=== PATIENT | male | born 1930 | race Caucasian/White ===

== ENCOUNTER 2016-10-20 13:47 | Inpatient (IN) | payer MEDICARE ==
[~2016-10-20] VITALS: Ht 170.2 cm; Wt 81.5 kg
[2016-10-21] MEDS ORDERED: CLOTCRE TOPICAL (08:46)
[2016-10-21] MEDS ORDERED: OMEGCAP PO (08:46)
[2016-10-21] MEDS ORDERED: MULTTAB23 PO (08:46)
[2016-10-21] MEDS ORDERED: NAPR500T PO (08:46)
[2016-10-21] MEDS ORDERED: OCUVTAB4 PO (08:46)
[2016-10-21] MEDS ORDERED: FURO40TA PO (08:46)
[2016-10-21] MEDS ORDERED: SIMV40TA PO (08:46)
[2016-10-21] MEDS ORDERED: POTA10CA PO (08:46)
[2016-11-01] MEDS ORDERED: ceFAZolin 2 GM PREMIX 50 ML IV SCH (09:00)
[2016-11-01] MEDS ORDERED: LACTATED RINGER'S 1000 ML IV PRN (09:00)
[2016-11-01] MEDS ORDERED: INSULIN HUMAN REGULAR 1,000 UNITS/10 ML VIAL SQ PRN (09:00)
[2016-11-01] MEDS: SODIUM CHLORIDE 0.9% IV SCH ×2 (09:00→13:10)
[2016-11-01] MEDS ORDERED: SODIUM CHLORID 0.9% 500 ML IV PRN (09:00)
[2016-11-01] MEDS ORDERED: CHLORHEXIDINE GLUCONATE 2 % 1 PACK (2 CLOTHS) TOPICAL PRN (09:00)
[2016-11-01] MEDS: CHLORHEXIDINE GLUCONATE 4% SOLN 120 ML BTL TOPICAL SCH (09:00)
[2016-11-01] MEDS ORDERED: POVIDONE IODINE 5% (ANTISEPSIS KIT) 4 APPLICATIONS EACH NARE PRN (09:00)
[2016-11-01] MEDS ORDERED: VANCOMYCIN 1000 MG/NS 250 ML (for <70 kg) IV SCH ×2 (09:00)
[2016-11-01] MEDS ORDERED: METOPROLOL TARTRATE 25 MG TAB PO PRN (09:00)
[2016-11-01] MEDS: TRANEXAMIC ACID IV SCH ×2 (09:00→13:10)
[2016-11-01] MEDS: EXPAREL PERI-ARTICULAR INJECTION (TOTAL VOL. 60 ML) P-ARTICULR SCH ×4 (09:00→13:44)
[2016-11-01] MEDS ORDERED: LACTATED RINGER'S 1000 ML INJ 1,000 ML IV ONE (09:17)
[2016-11-01] MEDS ORDERED: PHENYLEPH/NS 1000 MCG/10 ML SYR IV ONE (09:17)
[2016-11-01] MEDS ORDERED: ONDANSETRON HCL 4 MG/2 ML VIAL IV PUSH ONE (09:17)
[2016-11-01] MEDS ORDERED: NEOSTIGMINE 3 MG/3 ML SYR IV ONE (09:17)
[2016-11-01] MEDS ORDERED: ePHEDrine/NS 25 MG/5 ML SYR IV ONE (09:17)
[2016-11-01] MEDS ORDERED: PROPOFOL 200 MG/20 ML AMP IV ONE (09:17)
[2016-11-01 09:18] VITALS: BP 140/75; PULSE 68; RESP 18; TEMP 97.7; O2SAT 96
--- NOTE | 2016-11-01 11:30 | EKG ---
Date Performed: 11/01/2016 Time Performed: 09:26:32 PTAGE: 86 years EKG: Sinus rhythm WITH FIRST DEGREE AV BLOCK ABNORMAL ECG NO PREVIOUS TRACING DOCTOR: Santana Badillo Interpretating Date/Time 11/01/2016 11:29:26
[2016-11-01] MEDS ORDERED: GENTAMICIN SULFATE 80 MG/2 ML VIAL ONE ×2 (12:22)
[2016-11-01] MEDS ORDERED: MIDAZOLAM HCL 2 MG/2 ML VIAL ONE (12:39)
[2016-11-01] MEDS ORDERED: FAMOTIDINE 20 MG/2 ML VIAL ONE (12:40)
[2016-11-01] MEDS ORDERED: ACETAMINOPHEN/HYDROcodone 325 MG/10 MG TAB PO PRN (14:45)
[2016-11-01] MEDS ORDERED: BETAMETHASONE/CLOTRIMAZOLE CREAM 15 GM TOPICAL PRN (14:45)
[2016-11-01] MEDS ORDERED: SODIUM CHLORIDE 0.9% FLUSH 5 ML FLUSH IVF PRN (14:45)
[2016-11-01] MEDS ORDERED: ONDANSETRON HCL 4 MG/2 ML VIAL IVP PRN (14:45)
[2016-11-01] MEDS ORDERED: ACETAMINOPHEN/HYDROcodone 325 MG/7.5 MG TAB PO PRN (14:45)
[2016-11-01] MEDS ORDERED: MORPHINE SULFATE 4 MG/ML INJ IV PUSH PRN (14:45)
[2016-11-01] MEDS ORDERED: Post-op Orders (for Pharmacy) MISC XX ONE (14:45)
[2016-11-01] MEDS ORDERED: NALOXONE HCL 0.4 MG/ML AMP IV PRN (14:45)
--- NOTE | 2016-11-01 14:47 | PD.OP ---
cc: Angel Ward MD Operative Report Date of Surgery: Nov 01, 2016 Preoperative Diagnosis: Severe left hip osteoarthritis Postoperative Diagnosis: Procedure: Left total hip arthroplasty by anterior approach Anesthesia: Gen. Surgeon: Angel Ward Cable Technician(s): Dean Williamson PA-C The surgical procedure was assisted by my physician fitness assistant. My P.A. presence was necessary throughout this case for the manipulation and positioning of the surgical extremity. My P.A. was assisting me throughout the duration of this procedure. The skill set of a physician fitness assistant was medically necessary to complete this procedure. During the surgical case the surgical elastic knitter hand frame was working at the back table and the physician fitness assistant was directly assisting me. Operation and Findings: PLAN OF ACTIVITY Weight bear as tolerated. DRAINS: 7-mm ARTIE drain. IMPLANTS USED DePuy Corail size [10] collared stem with a size [22] Antelope Gription cup and a [36+5 metal] head. DETAILS OF PROCEDURE: This patient has a long history of hip pain. Patient was found to have severe osteoarthritis. The patient had radiographic evidence of joint space narrowing with [id number] arthritis and osteophytes around the acetabulum as well as the femoral head. There was also some cystic changes. The patient failed conservative treatment with pain medications, anti-inflammatories, physical therapy, assistive devices including a cane, as well as therapeutic injection of the hip. Patient's hip arthritis was limiting his ability to ambulate and perform activities of daily living. The patient wished to proceed with surgery and informed consent was obtained. Operative site was marked. I discussed both posterior approach and anterior approach with the patient and decision was made for anterior approach. Patient was brought to OR and placed on OR table. IV sedation and general anesthesia was administered by anesthesiologist. Patient positioned on a Ksenia table and was given IV antibiotics. Time-out procedure was performed. The hip and thigh were prepped with alcohol followed by Hibiclens. The thigh was draped in the usual sterile fashion. Clean Air Suite was used for this procedure. The procedure began with a 5-inch incision over the anterolateral thigh. Subcutaneous tissue was dissected with Bovie. The fascia over the tensa fasciae latae was incised. Care was taken to avoid injury to the lateral femoral cutaneous nerve. The tensor muscle was retracted laterally. Sartorius was retracted medially. Retractors were now placed. The reflected head of the rectus is now elevated. A capsulotomy was performed over the anterior head capsule. Sutures were placed to help retract the capsule. At this point the femoral head and neck were identified. With soft tissue protected, oscillating saw was used to make a cut through the femoral neck, the femoral head was now removed. At this point attention was turned to preparation of the acetabulum. The labrum was excised. The acetabulum was sequentially reamed up to size [52]. A Antelope cup was now placed. Fluoroscopy was used to aid in identification of appropriate version. Cup was fully impacted and found to have excellent fit. Hole eliminator was now placed. The liner was now impacted into the cup. At this point the hip was externally rotated. A hook was placed around the proximal femur. The capsule was released off the lateral and medial femur. The hip was now extended and adducted. Retractors were placed around the proximal femur to allow for exposure. A box osteotome was used to remove the lateral cortex of the femoral neck. A broach was used to help lateralize the prosthesis. Canal finder was used to create a path down the canal. Next, the canal was sequentially broached up to size [10]. This was found to be an excellent fit. Calcar planer was placed. A standard head was placed, and the hip was reduced. The hip was found to have excellent stability with good range of motion. The leg lengths were measured under fluoroscopy and found to be equal compared to preoperatively. Trial broach was removed. The Corail stem was opened. Stem was fully impacted into the proximal femur in appropriate version. The femoral head was placed. The hip was again reduced. Fluoroscopy confirmed excellent alignment of prosthesis. The wound was thoroughly irrigated and capsule was closed with #1 Vicryl. The fascia over the tensor fasciae muscle was closed with #1 Vicryl, subcutaneous tissue was closed with 3-0 Vicryl and the skin was closed with huy and Dermabond skin closure. The capsule layers were injected with a mixture of saline and bupivicaine. Dressings were applied. The patient was transferred to Recovery Room in stable condition. Angel Ward MD Nov 01, 2016 14:47
--- NOTE | 2016-11-01 14:53 | RADRPT ---
EXAM DATE/TIME: 11/01/2016 14:18 [facility] COMPARISON: No previous studies available for comparison. INDICATIONS : Left total hip replacement. MEDICAL HISTORY : None. SURGICAL HISTORY : None. ENCOUNTER: Initial ACUITY: 1 day PAIN SCORE: Non-responsive. LOCATION: Left hip. FINDINGS: 2 spot intraoperative fluoroscopic views of the left hip are obtained and demonstrate left femoral an d acetabular components which appear well seated. CONCLUSION: Postoperative changes left hip arthroplasty. Eliud Garcia MD on November 01, 2016 at 14:51 Board Certified Radiologist. This report was verified electronically.
[2016-11-01] MEDS ORDERED: DO NOT ADM ANY ANTICOAGULANT DRUGS PRN (15:06)
[2016-11-01] MEDS ORDERED: *morphine SULFATE 8 MG/ML PERIprocedure ONLY ONE ×2 (15:16→16:07)
[2016-11-01] MEDS: LACTATED RINGER'S 1000 ML INJ 1,000 ML IV SCH ×2 (15:30→22:40)
[2016-11-01] MEDS ORDERED: TRANEXAMIC ACID INJ 1,000 MG in SODIUM CHLORIDE 0.9% INJ 100 ML IV ONE (16:00)
--- NOTE | 2016-11-01 16:18 | RADRPT ---
EXAM DATE/TIME: 11/01/2016 15:06 [facility] COMPARISON: HIP LEFT (AP&LAT 2/3VWS) WO AP PELVIS, November 01, 2016, 14:18. INDICATIONS : Post op left hip. MEDICAL HISTORY : None. SURGICAL HISTORY : None. ENCOUNTER: Initial ACUITY: 1 day PAIN SCORE: Non-responsive. LOCATION: Left hip. FINDINGS: Normal bone density. Penile implant hardware identified. A left total hip arthroplasty is noted with overlying skin huy, surgical drain and subcutaneous emphysema. No evidence of dislocation. CONCLUSION: Left hip arthroplasty. Eliud Garcia MD on November 01, 2016 at 16:15 Board Certified Radiologist. This report was verified electronically.
[2016-11-01] MEDS: KETOROLAC TROMETHAMINE 30 MG/ML (IVP) VIAL IV PUSH SCH (16:40)
[2016-11-01] MEDS: ceFAZolin 2 GM PREMIX 50 ML IV SCH ×2 (17:38→22:39)
[2016-11-01 17:51] VITALS: BP 142/75; PULSE 89; RESP 16; TEMP 95.5; O2SAT 96
[2016-11-01] MEDS: SODIUM CHLORIDE 0.9% FLUSH 5 ML FLUSH IVF SCH (20:09)
[2016-11-01] MEDS: PRAVASTATIN SOD 80 MG TAB PO SCH (20:09)
[2016-11-01 20:12] VITALS: BP 122/63; PULSE 107; RESP 18; TEMP 96.2; O2SAT 97
[2016-11-01] MEDS ORDERED: NON-FORMULARY DRUG (Simvastatin 40 MG) PO SCH (21:00)
[2016-11-01] MEDS: VANCOMYCIN INJ 1,000 MG in SODIUM CHLOR 0.9% 250 ML INJ 250 ML IV SCH (21:32)
[2016-11-02 00:01] VITALS: BP 102/59; PULSE 88; RESP 17; TEMP 96.9; O2SAT 93
[2016-11-02] MEDS: KETOROLAC TROMETHAMINE 30 MG/ML (IVP) VIAL IV PUSH SCH ×2 (03:58→17:08)
[2016-11-02 04:21] VITALS: BP 103/56; PULSE 80; RESP 18; TEMP 96.1; O2SAT 96
[2016-11-02] MEDS: ceFAZolin 2 GM PREMIX 50 ML IV SCH (05:47)
--- NOTE | 2016-11-02 07:08 | PD.ORT.PN ---
Subjective Subjective Remarks POD 1 s/p Left SUZANNE doing well. pain controlled. no complaints. out of bed to chair yesterday Objective Vitals Vital Signs Date Time Temp Pulse Resp B/P Pulse Ox O2 Delivery O2 Flow Rate FiO2 11/02/16 04:21 96.1 80 18 103/56 96 11/02/16 00:01 96.9 88 17 102/59 93 11/01/16 20:12 96.2 107 18 122/63 97 11/01/16 19:56 18 11/01/16 17:51 95.5 89 16 142/75 96 11/01/16 15:45 70 12 138/74 94 Nasal Cannula 3 11/01/16 15:30 70 12 123/69 92 Nasal Cannula 3 11/01/16 15:15 68 12 134/71 95 Nasal Cannula 2.5 11/01/16 15:05 97.4 72 14 140/81 92 Nasal Cannula 2.5 11/01/16 09:18 97.7 68 18 140/75 96 I/O 11/01/16 11/01/16 11/01/16 11/02/16 11/02/16 11/02/16 07:00 15:00 23:00 07:00 15:00 23:00 Intake Total 2285 ml 957 ml Output Total 1095 ml 360 ml Balance 1190 ml 597 ml Intake Oral 360 ml 240 ml IV Total 125 ml 717 ml Other 1800 ml Output Urine Total 675 ml 300 ml Drainage Total 120 ml 60 ml Estimated Blood Loss 300 ml # Bowel Movements 0 0 Imaging Last 24 hours Impressions Hip and Pelvis X-Ray 11/01/16 1441 Signed Impressions: Service Date/Time: Tuesday, November 01, 2016 15:06 - CONCLUSION: Left hip arthroplasty. Eliud Garcia MD Objective Remarks LLE: dressings clean and dry. intact. NVI. + drain. Assessment & Plan Assessment and Plan 1) Left SUZANNE (anterior) - POD 1 -WBAT -dressing changes POD 2 -DC drain POD 2 -CM for HHC -work with therapy -if doing well, will plan for home with HHC -f/u with Nimo or PA in 2 weeks Dean Williamson Nov 02, 2016 07:08
[2016-11-02] MEDS ORDERED: XARE10TA PO (07:10)
[2016-11-02] MEDS ORDERED: WALKER/ADULT/FO1 MIS (07:10)
[2016-11-02] MEDS ORDERED: HYDR-3366 PO (07:10)
--- NOTE | 2016-11-02 07:10 | HHI.FF ---
Face to Face Verification Diagnosis: (1) S/P total hip arthroplasty Physical Therapy Gait training Hip: Total hip, Protocol: Left Left LE Weight Bearing: WB as tolerated Nursing Dressing Changes: Daily dressing change, Coverderm/Primapore (begin xeroform POD 10) I have seen patient Fernandez Huang on 11/02/16. My clinical findings support the need for the requested home health care services because: Ltd mobility - disease progression I certify that my clinical findings support that this patient is homebound because: Post-op weakness Dean Williamson Nov 02, 2016 07:10
[2016-11-02 08:00] VITALS: BP 116/58; PULSE 80; RESP 16; TEMP 96.4; O2SAT 92
[2016-11-02 08:13] LABS: REVIEW FLAG FINAL
[2016-11-02] MEDS: CHLORHEXIDINE GLUCONATE 4% SOLN 120 ML BTL TOPICAL SCH (08:29)
[2016-11-02] MEDS: SODIUM CHLORIDE 0.9% FLUSH 5 ML FLUSH IVF SCH ×2 (08:30→21:00)
[2016-11-02] MEDS: POTASSIUM CHLORIDE 10 MEQ CAP PO SCH (08:33)
[2016-11-02] MEDS: FUROSEMIDE 40 MG TAB PO SCH (08:33)
[2016-11-02] MEDS ORDERED: FISH OIL PO SCH (09:00)
[2016-11-02] MEDS ORDERED: CHOLECALCIFEROL PO SCH (09:00)
[2016-11-02] MEDS: VANCOMYCIN INJ 1,000 MG in SODIUM CHLOR 0.9% 250 ML INJ 250 ML IV SCH (10:29)
[2016-11-02 12:00] VITALS: BP 113/57; PULSE 68; RESP 16; TEMP 96.1; O2SAT 93
[2016-11-02] MEDS: ENOXAPARIN SODIUM 30 MG/0.3 ML SYRINGE SQ SCH (13:53)
[2016-11-02 16:00] VITALS: BP 134/63; PULSE 86; RESP 16; TEMP 98.1; O2SAT 92
--- NOTE | 2016-11-02 16:54 | OTSOAPIP ---
2458/ 0051 PATIENT UNAVAILABLE DUE TO NURSING CARE RELATED TO NAUSEA. Therapist: Rochelle Patel OTR/L Signature on file
[2016-11-02] MEDS: LACTATED RINGER'S 1000 ML INJ 1,000 ML IV SCH (17:08)
[2016-11-02 20:18] VITALS: BP 119/56; PULSE 89; RESP 19; TEMP 98.3; O2SAT 95
[2016-11-02] MEDS: DOCUSATE SODIUM 100 MG CAP PO SCH (22:03)
[2016-11-02] MEDS: PRAVASTATIN SOD 80 MG TAB PO SCH (22:03)
[2016-11-03 00:23] VITALS: BP 103/62; PULSE 85; RESP 18; TEMP 98.6; O2SAT 92
[2016-11-03 04:15] VITALS: BP 137/65; PULSE 86; RESP 18; TEMP 98.4; O2SAT 92
[2016-11-03] MEDS: LACTATED RINGER'S 1000 ML INJ 1,000 ML IV SCH (05:34)
--- NOTE | 2016-11-03 06:59 | PD.ORT.PN ---
Subjective Subjective Remarks Doing well with pain controlled Objective Vitals Vital Signs Date Time Temp Pulse Resp B/P Pulse Ox O2 Delivery O2 Flow Rate FiO2 11/03/16 04:15 98.4 86 18 137/65 92 11/03/16 00:23 98.6 85 18 103/62 92 11/02/16 20:18 98.3 89 19 119/56 95 11/02/16 19:08 Room Air 11/02/16 18:37 21 11/02/16 18:01 16 11/02/16 16:00 98.1 86 16 134/63 92 11/02/16 12:00 96.1 68 16 113/57 93 11/02/16 08:00 96.4 80 16 116/58 92 I/O 11/02/16 11/02/16 11/02/16 11/03/16 11/03/16 11/03/16 07:00 15:00 23:00 07:00 15:00 23:00 Intake Total 957 ml 1102 ml 553 ml 785 ml Output Total 360 ml 500 ml 650 ml 400 ml Balance 597 ml 602 ml -97 ml 385 ml Intake Oral 240 ml 600 ml 360 ml 480 ml IV Total 717 ml 502 ml 193 ml 305 ml Output Urine Total 300 ml 500 ml 650 ml 400 ml Drainage Total 60 ml # Voids 3 # Bowel Movements 0 1 0 0 Result Diagram: 11/02/16 0720 Imaging Last 24 hours Impressions Hip and Pelvis X-Ray 11/01/16 1441 Signed Impressions: Service Date/Time: Tuesday, November 01, 2016 15:06 - CONCLUSION: Left hip arthroplasty. Eliud Garcia MD Objective Remarks LLE: dressings clean and dry. intact. NVI. Assessment & Plan Assessment and Plan 1) Left SUZANNE (anterior) - POD 2 -WBAT -dressing changes -CM for HHC -work with therapy DC to home today if cleared by physical therapy -f/u with Nimo or CECY in 2 weeks Rocco Laura Jr. Nov 03, 2016 06:59
--- NOTE | 2016-11-03 07:25 | HHI.DS ---
Discharge Summary Admission Date Nov 01, 2016 at 08:20 Discharge Date: Nov 03, 2016 Admitting Diagnosis Left hip osteoarthritis Diagnosis: (1) S/P total hip arthroplasty Diagnosis: Principal Procedures Anterior left total hip arthroplasty CBC/BMP: 11/02/16 0720 Significant Findings Laboratory Tests Test 11/02/16 07:20 Hemoglobin 12.5 GM/DL (13.0-17.0) Hematocrit 36.0 % (39.0-51.0) PE at Discharge LLE: dressings clean and dry. intact. NVI. Hospital Course Patient admitted on outpatient basis for elective left total hip arthroplasty. Patient tolerated the procedure well was admitted 6 north. Patient was out of bed on postop day 1 with therapy. His pain was well-controlled using hemodynamically stable. On postoperative day 2 he was doing well and ambulating with minimal assistance. He is fit for discharge home with home health care. He'll remain weightbearing as tolerated. He will undergo daily dressing changes with home health care. He'll follow up in office Dr. Foramn or his PA in 2 weeks Pt Condition on Discharge: Good Discharge Disposition: Disch w/ Home Health Serv Discharge Instructions Diet Instructions: As Tolerated, No Restrictions Activities You Can Perform: Weight Bearing as Nik Follow up Referrals: Orthopedics - 11/16/16 @ [facility] with Angel Forman MD New Medications: Hydrocodone-Acetaminophen ([place]) 10-325 Mg Tab 1 TAB PO Q4H PRN PAIN #60 Ref 0 TAB Rivaroxaban (Xarelto) 10 Mg Tab 10 MG PO DAILY Blood Clot Prevention #14 Ref 0 TAB Walker/Adult/Folding (Walker/Adult/Folding) 1 Mis Mis 1 EA .ROUTE DIRECTED #1 Ref 0 EA Continued Medications: Clotrimazole-Betamethasone Topical (Clotrimazole-Betamethasone Topical) 1-0.05% Cream 1 APPLIC TOPICAL DAILY PRN fungal infection #45 Ref 0 GM Fish Oil-Cholecalciferol ([place]-3 Fish Oil/Vitamin) 1,000-1,000 Mg Cap 3 CAP PO DAILY Nutritional Supplement Ref 0 CAP Furosemide (Furosemide) 40 Mg Tab 40 MG PO DAILY #30 Ref 0 TAB Multiple Vitamins W/ Minerals (Preservision Areds) 1 Tab 1 TAB PO BID Nutritional Supplement Ref 0 TAB Multiple Vitamins W/ Minerals (Multi For Him 50+) 1 Tab Tab 1 TAB PO DAILY Nutritional Supplement Potassium Chloride ER (Potassium Chloride ER) 10 Meq Cap 10 MEQ PO DAILY Electrolyte Replacement #30 Ref 0 CAP Simvastatin (Simvastatin) 40 Mg Tab 40 MG PO HS Cholesterol Management #30 Ref 0 TAB Discontinued Medications: Naproxen (Naproxen) 500 Mg Tab 500 MG PO DAILY Pain Management #60 Ref 0 TAB Dean Williamson Nov 03, 2016 07:25
[2016-11-03] MEDS: DOCUSATE SODIUM 100 MG CAP PO SCH (07:51)
[2016-11-03] MEDS: FUROSEMIDE 40 MG TAB PO SCH (07:52)
[2016-11-03] MEDS: POTASSIUM CHLORIDE 10 MEQ CAP PO SCH (07:52)
[2016-11-03] MEDS: SODIUM CHLORIDE 0.9% FLUSH 5 ML FLUSH IVF SCH (07:53)
[2016-11-03 08:00] VITALS: BP 147/75; PULSE 95; RESP 18; TEMP 97.3; O2SAT 92
[2016-11-03] MEDS: CHLORHEXIDINE GLUCONATE 4% SOLN 120 ML BTL TOPICAL SCH (09:00)
[2016-11-03 11:57] VITALS: BP 139/70; PULSE 108; RESP 18; TEMP 96.9; O2SAT 95
[2016-11-03] MEDS: ENOXAPARIN SODIUM 30 MG/0.3 ML SYRINGE SQ SCH (13:09)
== END 2016-11-03 15:35 | disposition home health service (06) | DRG 470 ==
LOC: HSDI 11-01 08:20 → N06A 11-01 17:06
PROVIDERS: ADMIT Orthopaedic Surgery Orthopaedic Trauma; ATTEND Orthopaedic Surgery Orthopaedic Trauma
PROC: 0SRB01A Replacement of Left Hip Joint with Metal Synthetic Substitute, Uncemented, Open Approach (ICD-10-PCS; principal; 2016-11-01 12:45)
DX: M16.12 Unilateral primary osteoarthritis, left hip (principal)
CPT/HCPCS: 73501; 73502; 76000; 85014; 85018; 86850; 86900; 86901; 93005; C1776; C9290; J0690; J1580; J1650; J1885; J2250; J2270; J2370; J2405; J2710; J3010; J3370; J7050; J7120

== ENCOUNTER → 2016-10-21 | Outpatient (CLI) | payer MEDICARE ==
[~2016-10-21] MED LIST: CLOTCRE TOPICAL; FISH1000 PO; FURO40TA PO; HYDR-3366 PO; MULTTAB23 PO; NAPR500T PO; OCUVTAB4 PO; OMEGCAP PO; POTA10CA PO; PRESERVISION; SAWPOW; SIMV40TA PO; WALKER/ADULT/FO1 MIS; XARE10TA PO; ZOCO40TA PO
== END ==
LOC: CPRE 08:14
PROVIDERS: ATTEND Orthopaedic Surgery Orthopaedic Trauma
DX: M79.609 Pain in unspecified limb (principal)

== ENCOUNTER 2017-03-28 05:33 | Observation (INO) | payer MEDICARE ==
[~2017-03-28] VITALS: Ht 171.4 cm; Wt 81.6 kg
[~2017-03-28 05:33] MED LIST changes: -FISH1000 PO; -NAPR500T PO; -PRESERVISION; -SAWPOW; -ZOCO40TA PO
[2017-03-28] MEDS ORDERED: METOPROLOL TARTRATE 25 MG TAB PO PRN (06:00)
[2017-03-28] MEDS ORDERED: CHLORHEXIDINE GLUCONATE 2 % 1 PACK (2 CLOTHS) TOPICAL PRN (06:00)
[2017-03-28] MEDS ORDERED: SODIUM CHLORID 0.9% 500 ML IV PRN (06:00)
[2017-03-28] MEDS ORDERED: POVIDONE IODINE 5% (ANTISEPSIS KIT) 4 APPLICATIONS EACH NARE PRN (06:00)
[2017-03-28] MEDS ORDERED: CHLORHEXIDINE GLUCONATE 4% SOLN 120 ML BTL TOPICAL SCH (06:00)
[2017-03-28] MEDS ORDERED: INSULIN HUMAN REGULAR 1,000 UNITS/10 ML VIAL SQ PRN (06:00)
[2017-03-28] MEDS ORDERED: LACTATED RINGER'S 1000 ML IV PRN (06:00)
[2017-03-28] MEDS ORDERED: BETAMETHASONE SOD PHOS/ACETATE SUSP 30 MG/5 ML VIAL ONE (06:10)
[2017-03-28] MEDS ORDERED: HYDR25TA5 PO (06:20)
[2017-03-28] MEDS ORDERED: NAPR250T PO (06:20)
[2017-03-28] MEDS ORDERED: BUPIVACAINE/EPINEPHRINE 0.25% 50 ML VIAL ONE (06:38)
--- NOTE | 2017-03-28 07:01 | MH ---
cc: REJI TORRES DATE OF ADMISSION 03/28/2017 ADMITTING DIAGNOSIS: Lumbar spinal stenosis. HISTORY This patient is an 86-year-old male with significant bilateral hip and leg pain. Investigative studies shows evidence of high-grade stenosis L2-3 and L3-4. The patient had long-term conservative care that goes back several years including epidural steroid injections, altered activities, physical therapy and medication. The patient is developing weakness into his legs. He now presents for surgical treatment. PAST MEDICAL HISTORY, SOCIAL HISTORY AND FAMILY HISTORY See attached notes. PHYSICAL EXAMINATION GENERAL: Average build male in moderate distress with his back and legs. HEENT: Normocephalic, atraumatic. Pupils equal, round, reactive to light and accommodation. Extraocular motions intact. NECK: Supple. CHEST: Chest is clear. HEART: Regular rate and rhythm. ABDOMEN: Soft, nontender, normoactive bowel sounds. MUSCULOSKELETAL: Thoracolumbar spine restricted motion, pain with range of motion. [id number]-rrisj is positive bilaterally. Motor examination shows mild weakness bilateral quadriceps and anterior tibialis. IMAGING STUDIES Investigative studies shows evidence of severe spinal stenosis L2-3 and L3-4. IMPRESSION 1. Lumbar spinal stenosis of L2-3 and L3-4. 2. Bilateral lumbosacral radiculopathy. PLAN Bilateral lumbar laminectomy from the left L2-3 and L3-4, bilateral lateral recess decompression, use of dilation port and microscope. CONSENT The risks of surgery including infection, bleeding, loss of motion, continued pain, need for further surgery, neurologic, vascular injury. The patient understands these risks and wished to press on with surgery as outlined above. Reji Torres MD MCG/FANTA /10:30 PM /6:55 AM
[2017-03-28] MEDS ORDERED: MIDAZOLAM HCL 2 MG/2 ML VIAL ONE (07:17)
[2017-03-28] MEDS ORDERED: ARTIFICIAL TEARS OPTH OINT 3.5 APPLIC/3.5 GM TUBO ONE (07:17)
[2017-03-28] MEDS ORDERED: ACETAMINOPHEN 1000 MG/100 ML 0 ML IV ONE (07:17)
[2017-03-28] MEDS ORDERED: DEXAMETHASONE SOD PHOS 4 MG/ML VIAL ONE (07:18)
[2017-03-28] MEDS ORDERED: SUGAMMADEX SODIUM 200 MG/2 ML VIAL IV PUSH ONE ×2 (07:38)
[2017-03-28] MEDS ORDERED: DO NOT ADM ANY ANTICOAGULANT DRUGS PRN (07:57)
[2017-03-28] MEDS: LACTATED RINGER'S 1000 ML INJ 1,000 ML IV SCH ×2 (08:00→21:39)
[2017-03-28] MEDS ORDERED: ACETAMINOPHEN/HYDROcodone 325 MG/5 MG TAB PO PRN (08:00)
[2017-03-28] MEDS ORDERED: ALUMINUM/MAGNESIUM/SIMETH 30 ML CUP PO PRN (08:00)
--- NOTE | 2017-03-28 08:04 | PD.OP ---
cc: Tiago Bautista MD Operative Report Date of Surgery: Mar 28, 2017 Preoperative Diagnosis: Lumbar spinal stenosis L2-3 and L3 4. Lumbar radiculopathy Postoperative Diagnosis: Same. Rapid response atrial fibrillation, acute onset Procedure: Procedure canceled Anesthesia: Gen. Surgeon: Tiago Bautista Insulator Technician(s): NAHUN Desai Operation and Findings: The patient was brought to the operating room and anesthetized in the supine position. The anesthesiologist reported to me that he had a heart rate of 190 with atrial fibrillation. It was recommended the case be canceled due to cardiac concerns. Apparently he has no history of atrial fibrillation or cardiac dysrhythmia. The patient was awakened and taken to the recovery room in satisfactory condition Tiago Bautista MD Mar 28, 2017 08:04
[2017-03-28] MEDS: ceFAZolin 2 GM PREMIX 50 ML IV SCH (08:11)
[2017-03-28] MEDS ORDERED: SODIUM CHLORIDE 0.9% FLUSH 10 ML FLUSH IV FLUSH PRN (08:30)
[2017-03-28] MEDS: SODIUM CHLORIDE 0.9% FLUSH 10 ML FLUSH IV FLUSH SCH ×2 (09:00→21:39)
[2017-03-28 10:13] VITALS: BP 130/72; PULSE 67; RESP 18; TEMP 95.6; O2SAT 93
--- NOTE | 2017-03-28 11:16 | PD.CONS ---
HPI Service [facility] Hospitalists Consult Requested By Primary Care Physician Nichelle Sarmiento M.D. Diagnoses: History of Present Illness Pt is 86 yo admitted electively today for laminectomy of L2-4 for severe spinal stenosis. Pt says he has been in excellent condition but has been slowed down by low back pain radiating into left lower ext. Pt taken to OR and during induction was said to have developed afib/rvr HR 190s. Surgery postponed and cardiology consulted. Currently pt resting comfortably in room. Back in sinus rhythm. Denies any hx cad, afib, chf, lung diseases,rigoberto, thyroid dz. Says he was recently placed on hctz for leg edema. Review of Systems Other lbp/left radiculopathy. Past Family Social History Past Medical History leg edema hyperlipidema appe turp umb. hernia repair penile implant left pedrito Reported Medications Hydrochlorothiazide 25 Mg Tab 25 Mg PO DAILY Naproxen 250 Mg Tab 250 Mg PO BID Simvastatin 40 Mg Tab 40 Mg PO HS Multi For Him 50+ (Multiple Vitamins W/ Minerals) 1 Tab Tab 1 Tab PO DAILY Preservision Areds (Multiple Vitamins W/ Minerals) 1 Tab 1 Tab PO BID [place]-3 Fish Oil/Vitamin (Fish Oil-Cholecalciferol) 1,000-1,000 Mg Cap 3 Cap PO DAILY Clotrimazole-Betamethasone Topical (Betamethasone/Clotrimazole) 1-0.05% Cream 1 Applic TOPICAL DAILY PRN Allergies: Coded Allergies: grass pollen (Unverified Allergy, Mild, Cough, 03/28/17) throat irritation Family History nc Social History no etoh/tob Physical Exam Vital Signs heart reg. s4 lung cta abd s/nt ext no edema right carotid bruit. Vital Signs Date Time Temp Pulse Resp B/P (MAP) Pulse Ox O2 Delivery O2 Flow Rate FiO2 03/28/17 10:13 95.6 67 18 130/72 (91) 93 03/28/17 08:44 98.0 67 20 145/71 (95) 96 Nasal Cannula 3 03/28/17 08:30 65 24 145/71 (95) 95 Nasal Cannula 3 03/28/17 08:15 68 20 132/67 (88) 94 Nasal Cannula 3 03/28/17 07:58 97.7 67 17 128/68 (88) 97 Nasal Cannula 3 Assessment and Plan Problem List: (1) Afib ICD Codes: I48.91 - Unspecified atrial fibrillation Status: Acute Plan: Pt reportedly developed afib/rvr during induction anesthesia today for spinal stenosis. I have found no strips/ekg's that have this rhythm for review. currenty in NSR discussed with cardiology. will get echo to eval LVF potline monitor. check electrolytes. pt recently placed on hctz check tsh carotid u/s to eval bruit possible bb per cardiology. (2) Carotid bruit ICD Codes: R09.89 - Other specified symptoms and signs involving the circulatory and respiratory systems Status: Acute (3) Spinal stenosis ICD Codes: M48.00 - Spinal stenosis, site unspecified Status: Acute Harinder Mcclellan MD Mar 28, 2017 11:16
[2017-03-28] MEDS ORDERED: PHENYLEPH/NS 1000 MCG/10 ML SYR IV ONE (12:00)
[2017-03-28] MEDS ORDERED: PROPOFOL 200 MG/20 ML AMP IV ONE (12:00)
[2017-03-28 12:09] VITALS: O2SAT 93
[2017-03-28 12:31] VITALS: BP 113/66; PULSE 84; RESP 18; TEMP 96.6; O2SAT 94
--- NOTE | 2017-03-28 13:56 | EKG ---
Date Performed: 03/28/2017 Time Performed: 08:18:35 PTAGE: 86 years EKG: Sinus rhythm WITH FIRST DEGREE HEART BLOCK, OCCASIONAL VENTRICULAR PREMATURE COMPLEXES MODERATE INTRAVENTRICULAR CONDUCTION DELAY Compared to previous tracing ventricular ectopy is new BORDERLINE ECG PREVIOUS TRACING : 11/01/2016 09.26 DOCTOR: Darius Gilliam Interpretating Date/Time 03/28/2017 13:53:40
[2017-03-28] MEDS: HYDROCHLOROTHIAZIDE 25 MG TAB PO SCH (14:44)
[2017-03-28 16:00] VITALS: BP 124/70; PULSE 84; RESP 18; TEMP 96.2; O2SAT 95
[2017-03-28 17:09] LABS: BICARBONATE 28.4 MEQ/L (21.0-32.0); MAGNESIUM 2.2 MG/DL (1.5-2.5); POTASSIUM 3.7 MEQ/L (3.5-5.1)
[2017-03-28 19:35] VITALS: BP 122/67; PULSE 83; RESP 18; TEMP 96.9; O2SAT 93
[2017-03-28] MEDS ORDERED: POTASSIUM PHOSPHATE MONOBASIC 500 MG TAB PO ONE (19:51)
[2017-03-28] MEDS ORDERED: PRAVASTATIN SOD 80 MG TAB PO SCH (21:00)
[2017-03-28 21:07] VITALS: O2SAT 94
[2017-03-28] MEDS: POTASSIUM PHOSPHATE MONOBASIC 500 MG TAB PO SCH (21:38)
--- NOTE | 2017-03-28 22:20 | RADRPT ---
EXAM DATE/TIME: 03/28/2017 20:42 [facility] COMPARISON: No previous studies available for comparison. INDICATIONS : Bruit. MEDICAL HISTORY : Hearing loss. Osteoarthritis. Skin cancer. Macular degeneration. Hyperlipidemia. SURGICAL HISTORY : Appendectomy. Umbilical hernia repair. Bilateral cataract removal. TURP. Penile implant. ENCOUNTER: Initial ACUITY: 1 day PAIN SCORE: 0/10 LOCATION: Bilateral neck PEAK SYSTOLIC VELOCITIES (cm/sec): ICA/CCA RATIO: Right: 0.8 Left: 1.0 ICA: Right: 69 Left: 93 CCA: Right: 89 Left: 117 ECA: Right: 98 Left: 85 VERTEBRAL: Right: 29 antegrade Left: 42 antegrade Elevated flow velocities and ICA/CCA ratios have been found to correlate with increased degrees of vessel stenosis, calculated as percentage of diameter relative to a normal segment of distal ICA/CCA FINDINGS: RIGHT CAROTID: No significant stenosis is visualized. The waveforms are within normal limits. LEFT CAROTID: No significant stenosis is visualized. The waveforms are within normal limits. VERTEBRAL ARTERIES: Antegrade flow is seen in both vertebral arteries. MISCELLANEOUS: None. CONCLUSION: Normal examination for a patient of this age. Fer Gibbons MD on March 28, 2017 at 22:18 Board Certified Radiologist. This report was verified electronically.
[2017-03-29 00:45] VITALS: BP 125/63; PULSE 60; RESP 17; TEMP 96.9; O2SAT 92
[2017-03-29 04:00] VITALS: BP 138/66; PULSE 62; RESP 18; TEMP 96.8; O2SAT 94
[2017-03-29 08:00] VITALS: BP 129/64; PULSE 64; RESP 18; TEMP 96.4; O2SAT 94
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
[2017-03-29] MEDS: SODIUM CHLORIDE 0.9% FLUSH 10 ML FLUSH IV FLUSH SCH (08:49)
[2017-03-29] MEDS: POTASSIUM PHOSPHATE MONOBASIC 500 MG TAB PO SCH (08:49)
[2017-03-29] MEDS: HYDROCHLOROTHIAZIDE 25 MG TAB PO SCH (08:49)
[2017-03-29] MEDS: LACTATED RINGER'S 1000 ML INJ 1,000 ML IV SCH (09:00)
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
[2017-03-29 10:35] LABS: BICARBONATE 31.1 MEQ/L (21.0-32.0); MAGNESIUM 2.1 MG/DL (1.5-2.5); POTASSIUM 3.6 MEQ/L (3.5-5.1)
[2017-03-29 12:00] VITALS: BP 153/83; PULSE 72; RESP 18; TEMP 96.2; O2SAT 95
[2017-03-29 16:00] VITALS: BP 113/63; PULSE 66; RESP 18; TEMP 96.5; O2SAT 94
[2017-03-29] MEDS ORDERED: DOCUSATE SODIUM 100 MG CAP PO SCH (21:00)
--- NOTE | 2017-04-03 09:49 | ECHRPT ---
Indication: CONCLUSIONS The left ventricular systolic function is hyperdynamic with an estimated ejection fraction in the ra nge of 65- 70%. Normal left ventricular size. Wall thickness is normal. No regional wall motion abnormalities are present. Trace mitral valve regurgitation. BP: 138 / 66 HR: 90 Rhythm: Sinus MEASUREMENTS (Male / Female) Normal Values Technical Quality:Fair 2D ECHO LV Diastolic Diameter PLAX 4.0 cm 4.2 - 5.9 / 3.9 - 5.3 cm LV Systolic Diameter PLAX 2.5 cm IVS Diastolic Thickness 1.2 cm 0.6 - 1.0 / 0.6 - 0.9 cm LVPW Diastolic Thickness 1.1 cm 0.6 - 1.0 / 0.6 - 0.9 cm LV Relative Wall Thickness 0.6 LVOT Diameter 2.0 cm LA Systolic Diameter LX 3.7 cm 3.0 - 4.0 / 2.7 - 3.8 cm LV Ejection Fraction MOD 4C 68.4 % LV Cardiac Index MOD 4C 2957.4 cm/minm LV Ejection Fraction 4C AL 70.1 % LV Cardiac Index 4C AL 3132.7 cm/minm M-MODE Aortic Root Diameter MM 3.4 cm AV Cusp Separation MM 2.1 cm DOPPLER AV Peak Velocity 142.0 cm/s AV Peak Gradient 8.1 mmHg LVOT Peak Velocity 104.0 cm/s LVOT Peak Gradient 4.3 mmHg AV Area Cont Eq pk 2.3 cm MV Area PHT 3.2 cm Mitral E Point Velocity 67.6 cm/s Mitral A Point Velocity 92.3 cm/s Mitral E to A Ratio 0.7 LV E' Lateral Velocity 6.9 cm/s Mitral E to LV E' Lateral Ratio 9.8 LV E' Septal Velocity 7.5 cm/s Mitral E to LV E' Septal Ratio 9.0 TR Peak Velocity 207.0 cm/s TR Peak Gradient 17.1 mmHg PV Peak Velocity 148.0 cm/s PV Peak Gradient 8.8 mmHg FINDINGS LEFT VENTRICLE The left ventricular systolic function is hyperdynamic with an estimated ejection fraction in the ra nge of 65- 70%. Normal left ventricular size. Wall thickness is normal. No regional wall motion abnormalities are present. RIGHT VENTRICLE Normal right ventricular size and systolic function. LEFT ATRIUM The left atrial size is normal. RIGHT ATRIUM The right atrial size is normal. ATRIAL SEPTUM Normal atrial septal thickness without atrial level shunting by limited color doppler interrogation. AORTA The aortic root and proximal ascending aorta are normal in size on limited imaging. MITRAL VALVE Trace mitral valve regurgitation. AORTIC VALVE Trileaflet aortic valve. No aortic valve stenosis or regurgitation. TRICUSPID VALVE Structurally normal tricuspid valve. No tricuspid valve stenosis or regurgitation. PULMONARY VALVE The pulmonary valve is not well visualized. VESSELS The inferior vena cava is normal in size. PERICARDIUM No pericardial effusion. Santana Badillo MD Edited by: [employer] CV Braiding Machine Tender (Electronically Signed) Final Date:29 March 2017 15:42 Amended: 03 April 2017 09:48
--- NOTE | 2017-04-10 12:44 | MB ---
cc: JUVENAL LUNA DATE OF CONSULTATION 03/28/2017 INDICATION Atrial fibrillation. HISTORY OF PRESENT ILLNESS An 86-year-old gentleman who recently was planning for a laminectomy for severe spinal stenosis. He was initially taken into the operating room and during induction developed atrial fibrillation with rapid ventricular rate. The procedure was cancelled, he was sent back to the floor and he spontaneously converted. He has no prior history of known arrhythmias. He was in his usual state of health, without symptoms. PAST MEDICAL HISTORY Hyperlipidemia. Spinal stenosis. REPORTED MEDICATIONS See med reconciliation. ALLERGIES No known drug allergies. FAMILY HISTORY Denies any family history of early coronary disease or sudden cardiac . SOCIAL HISTORY Denies alcohol, tobacco or drug use. REVIEW OF SYSTEMS A 12-point review of systems was performed, negative unless otherwise noted in the History of Present Illness. PHYSICAL EXAMINATION VITAL SIGNS: Heart rate 60, blood pressure 125/60 mmHg. GENERAL: Alert and oriented x3, in no acute distress. HEENT: Exam shows pupils reactive to light and accommodation. Extraocular movements are intact. NECK: No elevation in jugular venous distention. No thyromegaly, no lymphadenopathy, no carotid bruit. LUNGS: Clear to auscultation bilaterally. CARDIOVASCULAR EXAM: Regular rate and rhythm without murmurs, rubs or gallops. ABDOMINAL EXAM: Nontender, not distended. Good bowel sounds. No hepatosplenomegaly. EXTREMITIES: No clubbing, cyanosis or edema. Good peripheral pulses. NEUROLOGIC: Cranial nerves intact. Motor and sensory grossly intact. LABORATORY DATA Sodium 139, potassium 3.7, BUN 16, creatinine 0.99. ASSESSMENT Atrial fibrillation. PLAN Probably induced secondary to anesthesia. He has now spontaneously converted. We will check a 2-D echocardiogram. If he does not have any more arrhythmia, he is cleared from a cardiac perspective to proceed. We can try perioperative beta carlene. Once discharged at some point down the road we may consider outpatient stress testing. MD MICHELLE Chaudhry/SAMMI /11:55 AM /12:32 PM
[2017-04-18] MEDS ORDERED: NORC5TAB PO (12:05)
== END 2017-03-29 19:59 | disposition home or self-care (01) ==
LOC: HSDC 05:33 → HSDI 07:55 → INTOOBSV 07:55 → N06A 08:56
PROVIDERS: ADMIT Orthopaedic Surgery Orthopaedic Surgery of the Spine; ATTEND Orthopaedic Surgery Orthopaedic Surgery of the Spine
DX: I48.91 Unspecified atrial fibrillation (principal); M48.06 Spinal stenosis, lumbar region; M54.17 Radiculopathy, lumbosacral region; R09.89 Other specified symptoms and signs involving the circulatory and respiratory systems; E78.5 Hyperlipidemia, unspecified; Z53.9 Procedure and treatment not carried out, unspecified reason
CPT/HCPCS: 00630; 63047; 63048; 80048; 83735; 84100; 84443; 93005; 93306; 93880; 96360; 96361; G0378; J1100; J2250; J2370; J3010; J7120; J0131; J0702

== ENCOUNTER → 2017-04-18 | Day surgery (SDC) | payer MEDICARE ==
--- NOTE | 2017-04-17 23:20 | MH ---
cc: REJI TORRES DATE OF ADMISSION: 04/18/2017 ADMITTING DIAGNOSIS: Lumbar spinal stenosis. HISTORY OF PRESENT ILLNESS: This patient is an 86 year-old male with significant back, hip and leg pain. Investigative study shows evidence of lumbar spinal stenosis, especially L2-L3 to L3-L4. Despite conservative care the patient is painful and symptomatic and presents now for surgical treatment. PAST MEDICAL HISTORY: See attached notes. SOCIAL HISTORY, FAMILY HISTORY, AND REVIEW OF SYSTEMS: See attached notes. PHYSICAL EXAMINATION: GENERAL: The patient is an 86 year-old male in moderate distress with his back, hip and leg. HEENT: Normocephalic, atraumatic. Pupils equal, round, reactive to light and accommodation. Extraocular motions intact. NECK: Supple. CHEST: Clear. HEART: Regular rate and rhythm. ABDOMEN: Soft, nontender, normoactive bowel sounds. MUSCULOSKELETAL EXAMINATION: Thoracolumbar spine, restricted motion, pain with range of motion, straight leg raise positive bilaterally. Motor examination shows mild weakness bilateral quadriceps and anterior tibialis. IMPRESSION: Lumbar spinal stenosis, L2-L3 and L3-L4. PLAN: Bilateral lumbar laminectomy from the left, L2-L3 and L3-L4, bilateral lateral recess decompression, use of dilation port and microscope. CONSENT There are risks with surgery including infection, bleeding, loss of motion, continued pain, need further surgery, neurologic and vascular injury. The patient understands these issues and wishes to press on with surgery as outlined above. Reji Torres MD [facility] [place] /10:04 PM /11:12 PM
[~2017-04-18] MED LIST changes: +ACETAMINOPHEN 1000 MG/100 ML 100 ML IV ONE; +ACETAMINOPHEN/HYDROcodone 325 MG/7.5 MG TAB PO PRN; +BETAMETHASONE SOD PHOS/ACETATE SUSP 30 MG/5 ML VIAL ONE; +BUPIVACAINE/EPINEPHRINE 0.25% 50 ML VIAL ONE; +CHLORHEXIDINE GLUCONATE 2 % 1 PACK (2 CLOTHS) TOPICAL PRN; +DEXAMETHASONE SOD PHOS 4 MG/ML VIAL IV ONE; +DO NOT ADM ANY ANTICOAGULANT DRUGS PRN; +ESMOLOL HCL 100 MG/10 ML VIAL IV ONE; -FURO40TA PO; +GELATIN 12 MM/7 MM FOAM ONE; +GENTAMICIN SULFATE 80 MG/2 ML VIAL ONE; -HYDR-3366 PO; +HYDR25TA5 PO; +HYDROmorphone HCL PF 2 MG/ML VIAL ONE; +INSULIN HUMAN REGULAR 1,000 UNITS/10 ML VIAL SQ PRN; +KETOROLAC TROMETHAMINE 60 MG/2 ML (IM) VIAL IM ONE; +LACTATED RINGER'S 1000 ML INJ 1,000 ML IV ONE; +LACTATED RINGER'S 1000 ML INJ 1,000 ML IV SCH; +LACTATED RINGER'S 1000 ML IV PRN; +LIDOCAINE HCL 1% PF 5 ML AMPULE OTHER ONE; +METOPROLOL TARTRATE 25 MG TAB PO PRN; +MORPHINE SULFATE 4 MG/ML INJ IV PUSH PRN; +NAPR250T PO; +NORC5TAB PO; +NORMOSOL R INJ 1,000 ML IV ONE; +ONDANSETRON HCL 4 MG/2 ML VIAL IV PUSH ONE; +ONDANSETRON HCL 4 MG/2 ML VIAL ONE; +PHENYLEPH/NS 1000 MCG/10 ML SYR IV ONE; +PHENYLEPHRINE HCL 10 MG/ML VIAL IV ONE; -POTA10CA PO; +POVIDONE IODINE 5% (ANTISEPSIS KIT) 4 APPLICATIONS EACH NARE PRN; +POVIDONE IODINE 7.5% SCRUB 118 ML BOTTLE TOPICAL SCH; +PROMETHAZINE INJ 25 MG/ML VIAL ONE; +PROPOFOL 200 MG/20 ML AMP IV ONE; +ROCURONIUM INJ 50 MG/5 ML SYRINGE IV PUSH ONE; +SODIUM CHLORID 0.9% 500 ML IV PRN; +SODIUM CHLORIDE 0.9% 10 ML VIAL IV FLUSH ONE; +SUGAMMADEX SODIUM 200 MG/2 ML VIAL IV PUSH ONE; +VANCOMYCIN 1000 MG/NS 250 ML (for <70 kg) IV SCH; -XARE10TA PO; +ceFAZolin 2 GM PREMIX 50 ML IV SCH; +ePHEDrine/NS 25 MG/5 ML SYR IV ONE
--- NOTE | 2017-04-18 12:04 | PD.OP ---
cc: Tiago Bautista MD Operative Report Date of Surgery: Apr 18, 2017 Preoperative Diagnosis: Lumbar spinal stenosis L3 4 and L2-3, moderate to severe. Lumbar radiculopathy Postoperative Diagnosis: Same Procedure: Bilateral lumbar laminectomy from the left L2-3. Bilateral lumbar laminectomy from the left, L3 4. Use of dilation port and microscope Anesthesia: Gen. Surgeon: Tiago Bautista Novelty Balloon Assembler And Packer(s): Janell Bundy PA-C Operation and Findings: EBL: 100 cc INDICATION: Patient is a 86-year-old male with significant bilateral leg pain and weakness, left greater than right. He's had extensive conservative care including epidural steroid injections, altered activity, oral medications and physical therapy. He is developing weakness into the legs. He now presents for surgical treatment NOTE: Nicol Desai PA-C and Maren Bundy M.D. were present for the entire surgical procedure as my first assistants. In my medical opinion there skill and care were necessary for the proper management of this patient. PROCEDURE: The patient was brought to the operating room and anesthetized in the supine position. The patient was rolled to a prone position on a Kvng frame on a Carlo table. All pressure points were protected in the back was scrubbed with alcohol followed by Hibiclens followed by ChloraPrep and draped sterilely. A timeout was done and antibiotics were given. AP and lateral radiographic images were used to identify the proper levels and perform skin markings. We started from the left side at the L2-3 level. A paramedian incision was made and an off-midline fascial incision was made. A dilating system was placed down to the interlaminar space and held provisionally to the side of the table. The microscope was brought into the field. A high-speed bur under the microscope was used to perform a bilateral laminectomy from that side. A lateral recess decompression bilaterally was accomplished using straight and angled Kerrison punches. A partial medial facetectomy was accomplished. The crossing and exiting nerve roots were completely decompressed. We moved to the L3 4 level. A separate fascial incision was made. A dilating system was placed down to the interlaminar space and held provisionally to the side of the table. The microscope was brought back into the field. A high- speed bur under the microscope was used to perform a bilateral laminectomy from that side. A lateral recess decompression bilaterally was accomplished using straight and angled Kerrison punches. A partial medial facetectomy was accomplished. The crossing and exiting nerve roots were completely decompressed. The wound was irrigated copiously. A small piece of Gelfoam with Celestone was placed into the epidural space. Hemostasis was controlled. The deep fascia was approximated with interrupted 0 Vicryl suture subcutaneous suture with 2-0 Vicryl suture and skin with running intradermal 3-0 Vicryl followed by Dermabond. A field block with local anesthesia was utilized. A sterile dressing was applied. The sponge count and needle counts and instrument counts were all correct. The patient tolerated the procedure well as taken to the recovery room in satisfactory condition. FINDINGS: There was evidence of severe spinal stenosis at the L2-3 level and moderate to severe at the L3 4 level. There was a high-grade bilateral lateral recess stenosis at both levels. The worst side was to the left at the L2-3 level. There was no complication that was appreciated. There was a minimal to grade 1 spondylolisthesis at L3 4 but no clear evidence of overt instability requiring need for surgical fusion. Tiago Bautista MD Apr 18, 2017 12:04
--- NOTE | 2017-04-18 13:25 | RADRPT ---
EXAM DATE/TIME: 04/18/2017 10:02 [facility] COMPARISON: No previous studies available for comparison. INDICATIONS : L2-L3,L3-L4 laminectomy, lower back pain. MEDICAL HISTORY : Hearing loss. Osteoarthritis. Skin cancer. Macular degeneration. Hyperlipidemia. SURGICAL HISTORY : Appendectomy. Umbilical hernia repair. Bilateral cataract removal. TURP. Penile implant. ENCOUNTER: Initial ACUITY: 1 day PAIN SCORE: Non-responsive. LOCATION: lower back FINDINGS: 3 spot intraoperative fluoroscopic views of the lumbar spine are obtained demonstrating severe disc s pace narrowing at the lumbosacral junction and osteophytosis. CONCLUSION: Degenerative disc disease. Elidu Garcia MD on April 18, 2017 at 13:23 Board Certified Radiologist. This report was verified electronically.
[2017-04-18 15:15] VITALS: BP 128/72; PULSE 73; RESP 20; TEMP 97.6; O2SAT 97
== END | disposition home or self-care (01) ==
LOC: HSDC 06:20
PROVIDERS: ATTEND Orthopaedic Surgery Orthopaedic Surgery of the Spine
DX: M48.06 Spinal stenosis, lumbar region (principal); E78.00 Pure hypercholesterolemia, unspecified; H35.30 Unspecified macular degeneration; N40.0 Benign prostatic hyperplasia without lower urinary tract symptoms
CPT/HCPCS: 00630; 63047; 63048; 72020; 76000; J0131; J0690; J0702; J1100; J1170; J1580; J1885; J2370; J2405; J2550; J3010; J7120